=== PATIENT | female | born 1985 | race Caucasian/White ===

== ENCOUNTER 2016-08-25 12:08 | Emergency (ER) | payer SELFPAY ==
[~2016-08-25] VITALS: Ht 167.6 cm; Wt 56.7 kg
--- NOTE | 2016-08-25 12:46 | ED.ADGEN ---
Adult General Chief Complaint Chief Complaint facial rash HPI HPI Patient is a 30-year-old female who presents with cellulitis of her in. Patient states she raised up and pulled 4 days ago which is gradually become more red, swollen the past several days. She has been applying hot compresses and continue to squeeze the pus out of the pimple. She does not have fever chills, nausea vomiting or sweats. Denies history of MRSA. She is nondiabetic. Patient denies possibility of and is currently on her scheduled menstrual period. Review of Systems Review of Systems ROS as per HPI Current Medications Current Medications Current Medications Medications (Trade) Dose Ordered Sig/Jerod Start Time Stop Time Status Last Admin Dose Admin Trimethoprim/ Sulfamethoxazole (Bactrim Ds) 1 tab 1X ONCE 08/25/16 12:45 08/25/16 12:46 UNV Physical Exam Physical Exam Constitutional: Well developed, well nourished, no acute distress, non-toxic appearance. HENT: Normocephalic, atraumatic, bilateral external ears normal, oropharynx moist, no gingival swelling, and, small deroofed pimple with thickened skin and surrounding 3 cm patch of cellulitis. No fluctuance noted. No streaking lymphadenopathy noted. normal, no discharge. Psychologic: Affect normal, judgement normal, mood normal. EKG EKG [] Radiology/Procedures Radiology/Procedures [] Course & Med Decision Making Course & Med Decision Making Pertinent Labs and Imaging studies reviewed. (See chart for details) [First dose of antibiotics given in the urgency department will will treat for facial cellulitis with presumed MRSA." PCP follow-up recommended. Return precautions reviewed.] Final Impression Final Impression [1. facial swelling] Problems: Dragon Disclaimer Dragon Disclaimer This electronic medical record was generated, in whole or in part, using a voice recognition dictation system. TATIANNA TEMPLE DO August 25, 2016 12:46
[2016-08-25 12:55] VITALS: BP 98/61
[2016-08-25] MEDS ORDERED: SMZ/TMP 800/160MG TABLET. PO ONE (13:15)
== END 2016-08-25 13:21 | disposition home or self-care (01) ==
LOC: ER 12:08
DX: L03.211 Cellulitis of face (principal)
CPT/HCPCS: 99283